=== PATIENT | male | born 1955 | race African-American/Black ===

== ENCOUNTER 2017-10-05 18:20 | Emergency (ER) | payer SELFPAY ==
--- NOTE | 2017-10-05 18:57 | RAD ---
CHEST TWO VIEWS 10/05/17 HISTORY: Dyspnea. COMPARISON: 10/01/17 FINDINGS: The cardiac silhouette and pulmonary and pulmonary vasculature are unremarkable. Mediastinum is midli ne. Right rib fractures are similar in appearance to the prior study. They are not completely healed. There is no evidence of pneumothorax. No lobar consolidation or pleural fluid are apparent. IMPRESSION: Chronic type findings are stable. No active cardiopulmonary abnormalities are demonstrated. POS: [facility]
[2017-10-05] MEDS ORDERED: Sulfameth/Trimethoprim DS 800-160mg TAB ONE (19:30)
[2017-10-05 21:17] LABS: #Basophils 0.1 thou/uL (0.0-0.2); #Eosinphils 0.1 thou/uL (0.0-0.7); #Lymphocytes 2.9 thou/uL (1.20-3.40); #Monocytes 0.7 thou/uL (0.11-0.59); #Neutrophils 4.8 thou/uL (1.40-6.50); %Basophils 0.8 % (0.0-1.0); %Eosinophils 1.3 % (0.0-10.0); %Lymphocytes 33.7 % (21.0-51.0); %Monocytes 7.8 % (0.0-10.0); Hematocrit 39.8 % (42.0-52.0); Mean Platelet Volume 8.1 fL (7.4-10.4); Red Blood Cell (RBC) Count 4.15 mill/uL (4.70-6.10); White Blood Cell (WBC) Count 8.5 thou/uL (4.8-10.8)
[2017-10-05 21:31] LABS: Anion Gap 16 mmol/L (10-20); BUN (Urea Nitrogen) 9 mg/dL (8.4-25.7); Calc. Creatinine Clearance 0 mL/min (70-130); Calcium 8.6 mg/dL (7.8-10.44); Carbon Dioxide 21 mmol/L (23-31); Chloride 104 mmol/L (98-107); Estimated GFR-MDRD Greater than 90; LDH 229 U/L (125-220)
== END 2017-10-05 21:50 | disposition home or self-care (01) ==
LOC: ERS 18:20
DX: J44.0 Chronic obstructive pulmonary disease with (acute) lower respiratory infection (principal); J20.9 Acute bronchitis, unspecified; K21.9 Gastro-esophageal reflux disease without esophagitis; I10 Essential (primary) hypertension; E78.00 Pure hypercholesterolemia, unspecified; F20.9 Schizophrenia, unspecified; B20 Human immunodeficiency virus [HIV] disease; F17.210 Nicotine dependence, cigarettes, uncomplicated
CPT/HCPCS: 71020; 80048; 83615; 85025; 94640; 99406; J7620

== ENCOUNTER 2017-10-09 05:43 | Emergency (ER) | payer SELFPAY | END 2017-10-09 06:06 | disposition left against medical advice (07) | LOC: ERS 05:43 | DX: R07.9 Chest pain, unspecified (principal); K21.9 Gastro-esophageal reflux disease without esophagitis; B20 Human immunodeficiency virus [HIV] disease; J44.9 Chronic obstructive pulmonary disease, unspecified; F17.210 Nicotine dependence, cigarettes, uncomplicated; F20.9 Schizophrenia, unspecified; I10 Essential (primary) hypertension ==